=== PATIENT | female | born 1950 | race Caucasian/White ===

== ENCOUNTER → 2016-10-14 | Outpatient (CLI) | payer MEDICARE ==
--- NOTE | 2016-10-14 13:26 | NM ---
EXAMINATION TYPE: NM bone 3 phase DATE OF EXAM: 10/14/2016 COMPARISON: NONE HISTORY: Pain Triple phase bone scintigraphy was performed following the injection of27.3 mCi Tc 99m MDP. Immediat e images and 5.25 hours post injection images acquired. FINDINGS: Photopenic defect left knee from prior prosthesis. There is no evidence for increased uptake on angio graphic, blood pool or delayed images to suggest infection or loosening. There is a moderate increased uptake involving the medial tibiofemoral joint space right knee compati ble with osteoarthritis. Patellofemoral joint space uptake is also noted. IMPRESSION: 1. No abnormal uptake about the the patient's left knee prosthesis to suggest loosening or infection. 2 advanced degenerative changes right knee.
== END ==
LOC: RADNMMAIN 07:05
PROVIDERS: ATTEND Orthopaedic Surgery
DX: T84.84XD Pain due to internal orthopedic prosthetic devices, implants and grafts, subsequent encounter (principal); M17.11 Unilateral primary osteoarthritis, right knee
CPT/HCPCS: 78315; A9503

== ENCOUNTER 2017-06-22 06:24 | Inpatient (IN) | payer MEDICARE ==
[2017-06-17 09:47] VITALS: BMI 28.5
--- NOTE | 2017-06-21 09:33 | HP ---
HISTORY AND PHYSICAL CHIEF COMPLAINT: Left hip and groin pain. HISTORY OF PRESENT ILLNESS: The patient is a 66-year-old retired female who presents with progressive left hip/thigh/groin pain, worse with weightbearing activities. It has worsened over the past 6 months. She notes she is limping. She has tried medications with only partial temporary relief. PAST MEDICAL HISTORY: Significant for hypertension and arthritis along with hyperlipidemia. PAST SURGICAL HISTORY: Significant for left total knee arthroplasty in addition to bilateral knee arthroscopies. CURRENT MEDICATIONS: 1. Aleve. 2. Aspirin. 3. Atorvastatin. 4. Toprol. ALLERGIES: SULFA. FAMILY HISTORY: Significant for heart disease and Parkinson's. SOCIAL HISTORY: Negative for current tobacco or alcohol use. 16 POINT REVIEW OF SYSTEMS: Otherwise reviewed and is noncontributory. PHYSICAL EXAMINATION: The patient is approximately 5 foot 6, 172 pounds of mesomorphic habitus. HEENT exam is nonfocal. Neck is supple. Passive motion of her left hip, flexion 80 degrees, extension full, external rotation with the hip flexed 50 degrees, internal rotation is 0 degrees with pain. Clinically, she has got 1 cm shortening of the left lower extremity compared to the right. Her distal neurovascular exam appears intact in the left lower extremity. AP of the pelvis obtained in the office shows severe left hip osteoarthrosis. IMPRESSION: Left hip severe osteoarthrosis. RECOMMENDATION: I talked to the patient at length regarding her treatment options. At this point she is quite symptomatic and limited because of pain related to her osteoarthrosis, despite conservative measures. After thorough discussion, she opts to proceed with surgery. We will plan to proceed with left total hip arthroplasty utilizing a direct anterior approach. Risks and benefits were discussed at length in layman's terms. We will institute DVT prophylaxis postoperatively. Patient underwent preoperative medical evaluation by Dr. Martinez. MMCALL / IJN: [id number] /
[~2017-06-22 06:24] MED LIST: ACETAMINOPHEN TAB 500 MG TAB PO ONE; DEXAMETHASONE SOD PHOSPHATE 10 MG/ML 1 ML VIAL IV ONE; MELOXICAM 7.5 MG TAB PO ONE; MIDAZOLAM 2 MG/2 ML VIAL IV PRN; MORPHINE SULFATE 4 MG/ML SYRINGE IV PRN; ONDANSETRON 4 MG/2 ML VIAL IVP ONE; TRANEXAMIC ACID 1,000 MG in SODIUM CHLORIDE 0.9% 50 ML IVPB ONE; ceFAZolin IN SWFI 2 GM/20 ML SYRINGE IVP ONE
[2017-06-22] MEDS: LACTATED RINGERS 1,000 ML IV SCH (06:53)
[2017-06-22] MEDS ORDERED: MIDAZOLAM 2 MG/2 ML VIAL ONE (07:49)
[2017-06-22] MEDS ORDERED: ePHEDrine SULFATE/0.9% NACL/PF 50 MG/5 ML SYRINGE IV ONE (07:49)
[2017-06-22] MEDS ORDERED: HEPARIN SODIUM,PORCINE 10,000 UNIT/ML 1 ML VIAL ONE (07:49)
[2017-06-22] MEDS ORDERED: SODIUM CHLORIDE 0.9% 100 ML BAG ONE (07:49)
[2017-06-22] MEDS ORDERED: TRANEXAMIC ACID 1,000 MG/10 ML VIAL ONE (07:49)
[2017-06-22] MEDS ORDERED: PROPOFOL 10 MG/ML 20 ML VIAL IV ONE (07:49)
[2017-06-22] MEDS ORDERED: MORPHINE SULFATE (PF) 0.3 MG/0.3 ML SYR ONE (07:49)
[2017-06-22] MEDS ORDERED: LIDOCAINE 1% INJ 10MG/ML (20 ML MDV) ONE (07:49)
[2017-06-22] MEDS ORDERED: SODIUM CHLORIDE 0.9% IRRIG 1,000 ML BTL IRRIGATION ONE (07:49)
[2017-06-22] MEDS ORDERED: diphenhydrAMINE 50 MG/ML 1 ML VIAL ONE (07:49)
[2017-06-22] MEDS ORDERED: PHENYLEPHRINE-0.9% NACL SYG 1 MG/10 ML SYRINGE ONE (07:49)
[2017-06-22] MEDS ORDERED: diphenhydrAMINE 50 MG/ML 1 ML VIAL IVP PRN (08:16)
[2017-06-22] MEDS ORDERED: MORPHINE SULFATE 4 MG/ML SYRINGE IVP PRN (08:16)
[2017-06-22] MEDS ORDERED: NALOXONE 0.4 MG/ML 1 ML VIAL IV PRN (08:16)
[2017-06-22] MEDS ORDERED: ceFAZolin 1,000 MG in SODIUM CHLORIDE 0.9% 1,000 ML IRRIGATION ONE (08:35)
[2017-06-22] MEDS ORDERED: LACTATED RINGERS 1,000 ML IV ONE (09:28)
[2017-06-22] MEDS ORDERED: MAGNESIUM HYDROXIDE 2,400 MG/10 ML CUP PO PRN (09:56)
[2017-06-22] MEDS ORDERED: HYDROcodone/APAP 7.5-325MG 1 EACH TAB PO PRN ×2 (09:56)
[2017-06-22] MEDS ORDERED: ACETAMINOPHEN TAB 325 MG TAB PO PRN (09:56)
[2017-06-22] MEDS ORDERED: HYDROmorphone 0.5 MG/0.5 ML SYRINGE IVP PRN ×2 (09:56)
--- NOTE | 2017-06-22 10:27 | P.OP ---
Date of Procedure: 06/22/17 Preoperative Diagnosis: Left hip severe osteoarthrosis Postoperative Diagnosis: Same Procedure(s) Performed: Left total hip arthroplasty-anterior [id number]-lysne-ere Implants: Depuy Corail size 12 press-fit collared femoral stem, 32 mm +1 cobalt chrome femoral head, 56 mm acetabular shell with neutral polyethylene liner Anesthesia: spinal Surgeon: Kurtis Lowry Family Service Caseworker #1: Mati Ybarra Estimated Blood Loss (ml): 450 Pathology: other (Femoral head) Condition: stable Disposition: PACU Indications for Procedure: The patient is a 66-year-old female who presents with progressive left hip pain secondary to osteoarthrosis despite conservative measures. A discussion of the risks and benefits of operative intervention versus continued conservative measures was made with the patient. She opted to proceed with surgery. Specific risks of surgery to include infection, neurovascular injury, development of blood clots, possible component loosening, possible fracture, possible leg length discrepancy and need for subsequent procedures was discussed. Informed consent was obtained. Operative Findings: Severe osteoarthrosis with [id number] changes Description of Procedure: The patient was brought to the operating room, and after induction of spinal anesthesia was positioned supine on the Cydney table. The left lower extremity was prepped and draped in normal fashion. Preoperative templating was previously performed to estimate component positioning and sizes. Fluoroscopy was used to level the pelvis. A 12 cm incision was then made starting 3 finger breadths posterior and distal to the ASIS. The skin and subcutaneous tissues were divided sharply. The fascia was split in line with the skin incision anterior to the perforators. The interval between the sartorius and tensor fascia cipriano was then bluntly developed. The posterior portion the fascia was opened with electrocautery. The lateral circumflex vessels were identified and coagulated prior to sectioning. A retractor was placed along the superior femoral neck. A second retractor was placed over the anterior acetabular rim. A wide capsulotomy was performed. Labrum was debrided. The neck cut was then made at a 45 and the shaft proximally 1 cm above the level of the lesser trochanter. The head was then extracted. The acetabulum was inspected. Retractors were placed anterior and posteriorly. The remaining capsular and labral tissue was debrided sharply clearly defining the acetabular margins. I began reaming with a 47 mm reamer taking care to initially medialize and then reaming at 45 of abduction and 20 of anteversion. Sequential reaming is performed up to 55 mm. A trial 56 mm acetabular shell was inserted in the same orientation and this is verified with fluoroscopy. There was good rim fit and stability. A 56 mm acetabular shell was inserted at 45 of abduction and 20 of anteversion. Again this is verified with fluoroscopy. There was good rim fit and stability. I did place a 30 mm x 6.5 mm cancellus screw posterior and superior. The purchase was obtained. A neutral polyethylene liner was then gently inserted. This was impacted. Care was taken to avoid any soft tissue interposition. Pulsatile lavage was utilized. Attention was then paid towards preparing the proximal femur. The appropriate retractors were placed. The hip was fully extended and externally rotated 130. The saddle region was debrided sharply clearly defining the greater trochanter and lateral neck. A canal finder was used to find the femoral canal. Sequential broaching was performed up to a size 12 broach. Care was taken to lateralize proximally. This was placed parallel to the posterior cortex. There is good rotational stability. A calcar mill was used to fashion the medial calcar. A standard neck along with a 32 mm +1 head was placed. The hip was gently reduced. Fluoroscopy was utilized to check leg lengths utilizing the overlay technique. I was able to obtain caodaism of leg length. The hip was then extended 60 and externally rotated 60 and was stable. It was then dislocated and the trial components were then removed. A size 12 collared femoral stem was inserted again parallel to the posterior cortex and was fully seated. There is good rotational stability. The 32 mm +1 cobalt chrome femoral head was gently impacted. Hip was gently reduced. I felt there was adequate caodaism of soft tissue tension and it was stable in 0 and 60 of extension with up to 80 of external rotation. Pulsatile lavage was again utilized. The fascia was closed with running 0 Vicryl suture. The subcutaneous tissues reapproximated interrupted 2- 0 Vicryl sutures. Skin tape and adhesive was applied. A sterile dressing was applied. The patient did receive 2 doses of IV TXA. Cell Saver was utilized with blood loss estimate a 450 mL. 125 mL was given back. No complications were incurred. Sponge and needle counts were correct at the end the case. The patient was then transferred to the recovery room in good condition.
--- NOTE | 2017-06-22 10:31 | XR ---
EXAMINATION TYPE: XR Hip Limited LT DATE OF EXAM: 06/22/2017 CLINICAL HISTORY: Left hip pain and osteoarthritis. TECHNIQUE: Single AP portable view of left hip is obtained immediately postoperatively. COMPARISON: None. FINDINGS: Metallic hardware from total left hip arthroplasty is seen and appears satisfactory in alig nment and position. There is evidence of recent surgery with subcutaneous gas noted laterally. IMPRESSION: Metallic hardware from left hip arthroplasty is satisfactory in position.
--- NOTE | 2017-06-22 10:33 | FL ---
EXAMINATION TYPE: FL guidance operating room, XR Hip Limited LT DATE OF EXAM: 06/22/2017 CLINICAL HISTORY: Left hip pain and osteoarthritis. TECHNIQUE: Fluoroscopy. Limited intraoperative views left hip. COMPARISON: None. FINDINGS: Fluoroscopic guidance was provided during left hip replacement procedure performed by Dr. Lowry. A total of 36 seconds of fluoroscopic time was utilized during the procedure and 1 spot intra operative image is acquired. Single intraoperative image acquired shows metallic hardware from frontal projection satisfactory [place] level of left hip. IMPRESSION: As Above.
[2017-06-22] MEDS: ONDANSETRON 4 MG/2 ML VIAL IVP PRN ×2 (12:19→17:32)
[2017-06-22] MEDS: traMADol 50 MG TAB PO SCH ×3 (12:26→21:57)
[2017-06-22] MEDS ORDERED: METOCLOPRAMIDE 5 MG/ML 2 ML VIAL IVP PRN (13:51)
[2017-06-22] MEDS ORDERED: METOCLOPRAMIDE 5 MG/ML 2 ML VIAL ONE (13:52)
[2017-06-22 14:57] VITALS: RESP 16
[2017-06-22] MEDS: ceFAZolin IN SWFI 2 GM/20 ML SYRINGE IVP SCH (15:21)
[2017-06-22] MEDS ORDERED: ONDANSETRON 4 MG/2 ML VIAL IVP PRN (17:31)
[2017-06-22] MEDS ORDERED: METOCLOPRAMIDE 5 MG/ML 2 ML VIAL IVP SCH (18:00)
[2017-06-22] MEDS ORDERED: METOPROLOL SUCCINATE (ER) 50 MG TAB.ER.24H PO SCH (21:00)
[2017-06-22] MEDS ORDERED: ATORVASTATIN 20 MG TAB PO SCH (21:00)
[2017-06-22] MEDS ORDERED: SENNOSIDES-DOCUSATE SODIUM 1 EACH TAB PO SCH (21:00)
[2017-06-23] MEDS: ceFAZolin IN SWFI 2 GM/20 ML SYRINGE IVP SCH (01:28)
--- NOTE | 2017-06-23 01:31 | CONS ---
CONSULTATION DATE OF CONSULTATION: June 22, 2017. REASON FOR CONSULTATION: Medical management requested by Dr. Lowry. CONSULTATION: This is a very pleasant 66 -year-old patient of Dr. Alyse Martinez. The patient has undergone a left total knee arthroplasty. Post procedure patient has had nausea, vomiting. No chest pain. Not able to keep much down. Chronic stable medical conditions include GERD, hypertension, hyperlipidemia. The patient has got osteoarthritis in other joints including the knee, urinary stress incontinence. Denies any cardiac history. REVIEW OF SYSTEMS: Constitutional: Tired. HEENT none. Respiratory none. Cardiovascular none. Gastrointestinal heartburn, nausea, vomiting. Genitourinary: Incontinence. Dermatological and hematologic, lymphatic none. Psychiatry and neurological none. Musculoskeletal: Arthritic pain especially in the knees. PAST HISTORY: GERD, hypertension, hyperlipidemia, osteoarthritis of the knees, urinary stress incontinence. PAST SURGICAL HISTORY: Breast surgery, joint replacement, orthopedic surgery, tonsillectomy, tubal ligation, left knee replacement, bunionectomy, left breast biopsy, meniscus repair right knee, left total hip arthroplasty. SOCIAL HISTORY: Alcohol occasionally. Never smoked. . FAMILY HISTORY: Reviewed, noncontributory to presentation. HOME MEDICATIONS: 1. COQ 10 200 mg p.o. daily. 2. Omeprazole 20 mg with supper. 3. Toprol-XL 50 mg p.o. daily. 4. Mobic 50 mg p.o. daily. 5. Fish oil 160 mg p.o. daily. 6. Vitamin D3 2000 units p.o. daily. 7. Keflex 100 mg as directed. 8. Lipitor 20 mg q.h.s. 9. Aspirin 81 mg daily. ALLERGIES: SULFA. PHYSICAL EXAMINATION: Temperature 97.5, pulse 83, respiratory rate 16, blood pressure 105/55, pulse ox 96% on 2 L. General appearance: Average built, sitting up, comfortable. Eyes: Pupils are equal. Conjunctivae normal. HEENT: Oral cavity normal. Neck: JVD not raised. Mass not palpable. Respiratory effort lungs are clear. Cardiovascular 1st and 2nd sounds normal. No edema. ABDOMEN: Soft, nontender. Liver and spleen not palpable. Lymphatics: No lymph nodes palpable in neck or axillae. Psychiatry: Alert and oriented times three. Mood and affect normal. Musculoskeletal: Evidence of osteoarthritis especially hands and the right knee. INVESTIGATIONS: Investigation none. ASSESSMENT: 1. Left total hip arthroplasty. 2. Gastroesophageal reflux disease. 3. Essential hypertension. 4. Hyperlipidemia. 5. Primary osteoarthritis. 6. Chronic urinary stress incontinence. 7. Nausea and vomiting, likely a side effect of pain medications. PLAN: Home medications are resumed. DVT prophylaxis per Dr. Lowry in the form of Dr. Corcoran. Pain is otherwise controlled. Care was discussed with the patient. Thank you Dr. Lowry. Copy to Dr. Martinez. MMCALL / YANGN: [id number] /
[2017-06-23] MEDS ORDERED: PANTOPRAZOLE 40 MG TABLET PO SCH (07:30)
[2017-06-23] MEDS: LACTATED RINGERS 1,000 ML IV SCH (07:52)
[2017-06-23 07:54] VITALS: PULSE 76; TEMP 98.8
[2017-06-23 08:05] LABS: Basophils % (A) 0 %; Eosinophils % (A) 0 %; Hypochromasia Moderate; Lymphocytes # (A) 1.6 k/uL (1.0-4.8); Lymphocytes % (A) 14 %; MCH 27.3 pg (25.0-35.0); MCV 88.1 fL (80.0-100.0); Mean Platelet Volume 7.3; Monocytes # (A) 0.7 k/uL (0-1.0); Monocytes % (A) 6 %; Neutrophils # (A) 8.8 k/uL (1.3-7.7); Neutrophils % (A) 79 %; Platelet Count 271 k/uL (150-450); RBC 3.29 m/uL (3.80-5.40); RDW 13.5 % (11.5-15.5); WBC 11.2 k/uL (3.8-10.6)
[2017-06-23] MEDS: traMADol 50 MG TAB PO SCH (08:38)
[2017-06-23] MEDS ORDERED: RIVAROXABAN 10 MG TAB PO SCH (09:00)
--- NOTE | 2017-06-23 10:37 | P.PN ---
Progress Note - Text Date: 06/23/2017 Time: 0702 The patient is status post, total left hip arthroplasty. Vital signs stable VAS:[0-10] Patient has no complaints of pain. The patient incurred some minimal itching yesterday, this itching is now subsiding. Pain meds to be managed by service.
[2017-06-23 11:49] VITALS: BP 98/57
[2017-06-23] MEDS ORDERED: CHOLECALCIFEROL 1,000 UNIT TAB PO SCH (12:00)
--- NOTE | 2017-06-23 12:19 | P.PN ---
Subjective Progress Note Date: 06/23/17 Principal diagnosis: Status post left total hip arthroplasty Patient is in today resting in a hospital chair, she appears comfortable. She denies any acute pain. She was very nausea since yesterday after surgery, this has improved. She denies any headaches, lightheadedness, chest pain or shortness of breath. Objective - Vital Signs Vital signs: Vital Signs Temp 98.8 F 06/23/17 07:53 Pulse 76 06/23/17 07:53 Resp 16 06/23/17 11:41 BP 98/57 06/23/17 11:48 Pulse Ox 100 06/23/17 09:01 Intake & Output 06/22/17 06/23/17 06/23/17 18:59 06:59 18:59 Intake Total 1980 2039 Output Total 750 450 300 Balance 1231 1590 -300 Weight 80.286 kg Intake: IV 1980 480 Lactated Ringers 1,000 ml 180 480 @ 60 mls/hr IV [id number] Rx#:[id number] Intake, IV Titration 480 Amount Lactated Ringers 1,000 ml 480 As IV .[facility] Rx#: [id number] Oral 1080 Output: Urine 300 450 300 Uretheral (Craig) 300 Estimated Blood Loss 450 Other: Voiding Method Indwelling Catheter Indwelling Catheter - Exam Left lower extremity: Incision is clean, dry, and intact. The prineo tape is in good condition. There is minimal soft tissue swelling and ecchymosis surrounding the medial and lateral aspects of the incision. Calf is soft, no tenderness with palpation. Plantar flexion, dorsiflexion, EHL, FHL are intact. Sensory exam to light touch throughout the extremity is intact, dorsal pedis pulses 2+. - Labs CBC & Chem 7: 06/23/17 07:01 Labs: Abnormal Lab Results - Last 24 Hours (Table) 06/23/17 Range/Units 07:01 WBC 11.2 H (3.8-10.6) k/uL RBC 3.29 L (3.80-5.40) m/uL Hgb 9.0 L (11.4-16.0) gm/dL Hct 29.0 L (34.0-46.0) % Neutrophils # 8.8 H (1.3-7.7) k/uL Assessment and Plan Plan: Assessment: 1. Postop day 1 status post left total hip arthroplasty Plan: 1. Pain control, will utilize Tylenol at home 2. GI and DVT prophylaxis, Xarelto 10 mg 3. Medical recommendations 4. Wound care instructions discussed 5. Home therapy and nursing after discharge 6. Discharge planning: Patient will be discharged home today Time with Patient: Less than 30
--- NOTE | 2017-06-23 12:26 | P.DS ---
Providers Date of admission: 06/22/17 06:24 Expected date of discharge: 06/23/17 Attending physician: Kurtis Lowry Primary care physician: Alyse Martinez Hospital Course: Date of admission: 06/22/2017 Date of discharge: 06/23/2017 Admission diagnosis: Status post left total hip arthroplasty Discharge diagnosis: Same Attending physician: Dr. Lowry Surgical procedures: Left total hip arthroplasty Brief history: Patient is a 66-year-old female with a history of progressive primary left hip osteoarthritis. At this point patient has failed conservative treatment measures and has opted to proceed with a elective left total hip arthroplasty. Hospital course: Details of patient's surgery can be found in operative report. Patient tolerated the procedure well and was subsequently transported to orthopedic floor. Patient's orthopeidc and medical care was provided daily. Patient had daily laboratory tests performed for evaluation of overall blood counts. Patient had daily physical therapy to include strengthening range of motion as well as education with walker ambulation. Patient was treated with Xarelto for their postoperative DVT prophylaxis during their inpatient stay. Patient was noted to have a relatively uneventful postoperative course. Patient reported satisfactory pain control with oral pain medications by postoperative day 0. Patient showed satisfactory progress with physical therapy. Patient moved steadily through the program and had no difficulty meeting the goals by postoperative day 1. Given patient's otherwise satisfactory course and having met physical therapy goals, plan is to discharge patient home on postoperative day 1. Discharge condition/disposition: Patient will be discharged home in stable condition. Discharge medications: Instructions are given on resumption of patient's normal daily medications per primary care recommendation, in addition patient will be prescribed Xarelto 10 mg. Discharge instructions: 1. Wound care and infection precautions, keep incision dry and covered while showering, no lotions, creams, moisturizers. No soaking, tubs, pools, hottubs. Do not scrub over the incision. 2. Weight-bear as tolerated with walker / cane until follow-up. 3. Ice and elevate when necessary. Do not exceed 20 minutes per hour with ice pack. 4. Utilize compression sleeve until seen at first follow up appointment. 5. Visiting nursing care. 6. Home physical therapy. 7. Pain meds and anticoagulants per prescription. 8. Pain medication has potential to cause constipation. Increase oral fluid and fiber intake. Contact primary care provider if you have not had a bowel movement within 48 hours after discharge 9. No anti-inflammatory medication until discussed at first post operative visit, this including Motrin, Aleve, Mobic, Diclofenac. 10. Follow up in office at 2 weeks postop with Fareed Ybarra PA-C 11. Follow up with your primary care doctor 7-10 days after discharge. 12. Contact [facility] with any questions, . Procedures: Left total hip arthroplasty Patient Condition at Discharge: Good Plan - Discharge Summary Discharge Rx Participant: No New Discharge Prescriptions: New Rivaroxaban [Xarelto] 10 mg PO DAILY #28 tab No Action Ubidecarenone [Co Q-10] 200 mg PO QAM Cholecalciferol (Vitamin D3) [Vitamin D3] 2,000 unit PO DAILY Aspirin [Adult Low Dose Aspirin EC] 81 mg PO 2100 Metoprolol Succinate [Toprol Xl] 50 mg PO DAILY@2100 Meloxicam [Mobic] 15 mg PO DAILY Atorvastatin [Lipitor] 20 mg PO HS Fish Oil Cap 1,600 mg PO DAILY Cephalexin [Keflex] 500 mg PO DIRECTED Omeprazole 20 mg PO W/SUPPER Discharge Medication List Aspirin [Adult Low Dose Aspirin EC] 81 mg PO 2100 06/17/17 [History] Atorvastatin [Lipitor] 20 mg PO HS 06/17/17 [History] Cephalexin [Keflex] 500 mg PO DIRECTED 06/17/17 [History] Cholecalciferol (Vitamin D3) [Vitamin D3] 2,000 unit PO DAILY 06/17/17 [History] Fish Oil Cap 1,600 mg PO DAILY 06/17/17 [History] Meloxicam [Mobic] 15 mg PO DAILY 06/17/17 [History] Metoprolol Succinate [Toprol Xl] 50 mg PO DAILY@2100 06/17/17 [History] Omeprazole 20 mg PO W/SUPPER 06/17/17 [History] Ubidecarenone [Co Q-10] 200 mg PO QAM 06/17/17 [History] Rivaroxaban [Xarelto] 10 mg PO DAILY #28 tab 06/22/17 [Rx] Follow up Appointment(s)/Referral(s): [facility], [NON-STAFF] - Mati Ybarra PAC [PHYSICIAN HYPER[employer] ESS[employer] DEVELOPER] - 07/07/17 4:10 pm Activity/Diet/Wound Care/Special Instructions: Orthopedic Discharge Instructions: 1. Wound care and infection precautions, keep incision dry and covered while showering, no lotions, creams, moisturizers. No soaking, pools, hot tubs. Do not scrub over incision. 2. Weight-bear as tolerated with walker / cane until follow-up. 3. Ice and elevate when necessary. Do not exceed 20 minutes per hour with ice pack. 4. Utilize compression sleeve until seen at first follow up appointment. 5. Visiting nursing care. 6. Home physical therapy. 7. Pain meds and anticoagulants per prescription. 8. Pain medication has potential to cause constipation. Increase oral fluid and fiber intake. Contact primary care provider if you have not had a bowel movement within 48 hours after discharge. 9. No anti-inflammatory medication until discussed at first post operative visit, this including Motrin, Aleve, Mobic, Diclofenac. 10. Follow up in office at 2 weeks postop with Fareed Ybarra PA-C 11. Follow up with your primary care doctor 7-10 days after discharge. 12. Contact [facility] with any questions, . Discharge Disposition: HOME WITH HOME HEALTH SERVICES
[2017-06-23] MEDS ORDERED: NON-FORMULARY DRUG (Omeprazole [Omeprazole] 20 MG) PO SCH (17:30)
--- NOTE | 2017-06-23 22:47 | PN ---
PROGRESS NOTE DATE OF SERVICE: 06/23/2017 PRESENTING COMPLAINT: Knee surgery. INTERVAL HISTORY: Patient is status post knee surgery, doing well. Nausea, vomiting completely resolved. Did tolerate a light breakfast, up and about. Pain is much better controlled. REVIEW OF SYSTEMS: Done for constitutional, cardiovascular, GI, pulmonary; relevant findings as above. CURRENT MEDICATIONS: Reviewed. EXAMINATION: Temperature 98.8, pulse 76, respirations 16, blood pressure 98/63, pulse ox 100% on room air. GENERAL APPEARANCE: Sitting up, comfortable. EYES: Pupils equal. Conjunctivae normal. HEENT: External appearance of nose and ears normal. Oral cavity normal. NECK: JVD not raised. Mass not palpable. RESPIRATORY: Effort normal. Lungs are clear. CARDIOVASCULAR: First and second sounds normal. No edema. ABDOMEN: Soft, nontender. Liver and spleen not palpable. PSYCHIATRY: Alert and oriented x3. Mood and affect normal. INVESTIGATIONS: Hemoglobin is 9. ASSESSMENT: 1. Left total hip arthroplasty. 2. Gastroesophageal reflux disease. 3. Essential hypertension. 4. Hyperlipidemia. 5. Primary osteoarthritis. 6. Chronic urinary stress incontinence. 7. Nausea, vomiting, side effect of pain medication, resolved. 8. Relative hypotension from blood loss. Care was discussed the patient. If the patient is discharged, should follow up with the family doctor. MMODL / IJN: [id number] /
== END 2017-06-23 13:13 | disposition home health service (06) | DRG 470 ==
LOC: 2ORMAIN 06:24 → 3SUR 10:42
PROVIDERS: ADMIT Orthopaedic Surgery; ATTEND Orthopaedic Surgery
PROC: 0SRB02A Replacement of Left Hip Joint with Metal on Polyethylene Synthetic Substitute, Uncemented, Open Approach (ICD-10-PCS; principal; 2017-06-22 08:00)
DX: M16.12 Unilateral primary osteoarthritis, left hip (principal); I95.9 Hypotension, unspecified; E78.5 Hyperlipidemia, unspecified; I10 Essential (primary) hypertension; M17.11 Unilateral primary osteoarthritis, right knee; K21.9 Gastro-esophageal reflux disease without esophagitis; N39.3 Stress incontinence (female) (male); R11.2 Nausea with vomiting, unspecified; T50.995A Adverse effect of other drugs, medicaments and biological substances, initial encounter; Z79.82 Long term (current) use of aspirin; Z79.899 Other long term (current) drug therapy; Z96.652 Presence of left artificial knee joint; Z88.2 Allergy status to sulfonamides; Z82.49 Family history of ischemic heart disease and other diseases of the circulatory system; Y92.239 Unspecified place in hospital as the place of occurrence of the external cause
CPT/HCPCS: 36415; 73501; 85025; 86850; 86891; 86900; 86901; 88300